=== PATIENT | female | born 1930 | race Caucasian/White ===

== ENCOUNTER → 2017-09-14 | Outpatient (CLI) | payer MEDICARE, OTHER ==
[~2017-09-14] MED LIST: ADVAIR HFA 230M12 GM INH; ASPIR 8181 MG PO; ASPIRIN325 PO; CALCIUM 600 +1 EAC1 PO; CALCIUM 600 +1 EAC5 PO; FISH OIL 1,0001 EAC5 PO; HYDROCHLOROTHIA25 M1 PO; IMDUR 30 MG TAB30 M1 PO; MELATONIN3 MG PO; MULTIVITAMINS PO; OCUVITE EYE +1 EACH PO; SYSTANE BALANCE10 ML OPHTHALMIC; ZOCOR 10 MG TAB10 MG PO
== END ==
LOC: M.CT 12:44
DX: K44.9 Diaphragmatic hernia without obstruction or gangrene (principal)